=== PATIENT | female | born 1995 | race Two or more races ===

== ENCOUNTER 2019-04-20 11:34 | Emergency (ER) | payer MEDICAID ==
[~2019-04-20] VITALS: Ht 167.6 cm; Wt 107.8 kg
[2019-04-20 13:00] VITALS: BP 122/76
== END 2019-04-20 13:52 | disposition home or self-care (01) ==
LOC: ED 13:40
DX: O26.892 Other specified pregnancy related conditions, second trimester (principal); R10.31 Right lower quadrant pain; Z3A.16 16 weeks gestation of pregnancy
CPT/HCPCS: 36415; 76815; 80053; 81001; 84702; 85025; 87086; 87210; 87491; 87591; 87808; 99284